=== PATIENT | female | born 2000 | race Caucasian/White ===

== ENCOUNTER 2018-05-23 14:07 | Emergency (ER) | payer OTHER ==
[2018-05-23] MEDS ORDERED: Ondansetron INJ* 2 MG/ML VIAL IV ONE (15:02)
[2018-05-23] MEDS ORDERED: NS 0.9% 1000 ML* 2,000 ML IV ONE (15:02)
--- NOTE | 2018-05-23 15:09 | ED ---
Abdominal Pain/Female - HPI Summary HPI Summary: Pt is a 18 y/o F presenting to the ED with a chief complaint of nausea and vomiting. She drank alcohol in excess last night, and is complaining of abd pain and general weakness. - History of Current Complaint Chief Complaint: EDNauseaVomitDiarrh Stated Complaint: VOMITING Time Seen by Provider: 05/23/18 14:52 Hx Obtained From: Patient Onset/Duration: Sudden Onset, Lasting Hours, Still Present Timing: Constant Severity Initially: Moderate Severity Currently: Moderate Pain Intensity: 9 Pain Scale Used: 0-10 Numeric Location: Diffuse Radiates: No Character: Burning Aggravating Factor(s): Food, Movement Alleviating Factor(s): Nothing Associated Signs and Symptoms: Positive: Nausea, Vomiting. Negative: Fever Allergies/Adverse Reactions: Allergies Allergy/AdvReac Type Severity Reaction Status Date / Time No Known Allergies Allergy Verified 05/23/18 14:23 Home Medications: Home Medications FLUoxetine* [PROzac*] 40 mg PO DAILY 05/23/18 [History Confirmed 05/23/18] PMH/Surg Hx/FS Hx/Imm Hx Previously Healthy: Yes Endocrine/Hematology History: Denies: Hx Diabetes Cardiovascular History: Denies: Hx Hypercholesterolemia - Immunization History Immunizations Up to Date: Yes Infectious Disease History: No Infectious Disease History: Denies: Traveled Outside the [place] in Last 30 Days - Family History Known Family History: Negative: Hypertension, Diabetes - Social History Lives: Dormitory/Roommates Alcohol Use: Weekly Substance Use Type: Reports: Marijuana Hx Tobacco Use: Yes Smoking Status (MU): Light Every Day Tobacco Smoker Review of Systems Negative: Fever Positive: Abdominal Pain, Vomiting, Nausea Positive: Weakness All Other Systems Reviewed And Are Negative: Yes Physical Exam - Summary Physical Exam Summary: Appearance: Well appearing, no pain distress Skin: warm, dry, reflects adequate perfusion Head/face: normal Eyes: EOMI, LANE ENT: normal Neck: supple, non-tender Respiratory: CTA, breath sounds present Cardiovascular: RRR, pulses symmetrical Abdomen: non-tender, soft Musculoskeletal: normal, strength/ROM intact Neuro: normal, sensory motor intact, A&Ox3 Triage Information Reviewed: Yes Vital Signs On Initial Exam: Initial Vitals Temp Pulse Resp BP Pulse Ox 97.2 F 84 16 141/84 98 05/23/18 14:19 05/23/18 14:19 05/23/18 14:19 05/23/18 14:19 05/23/18 14:19 Vital Signs Reviewed: Yes Diagnostics - Vital Signs Vital Signs Temp Pulse Resp BP Pulse Ox 05/23/18 14:19 97.2 F 84 16 141/84 98 - Laboratory Result Diagrams: 05/23/18 14:25 05/23/18 14:25 Lab Statement: Any lab studies that have been ordered have been reviewed, and results considered in the medical decision making process. Abdominal Pain Fem Course/Dx - Course Course Of Treatment: Pt is a 18 y/o F presenting to the ED with a chief complaint of nausea and vomiting. She drank alcohol in excess last night, and is complaining of abd pain and general weakness. Bloodwork/UA obtained. The pt will be discharged with a dx of nausea and vomiting. There is little concern for appendicitis. She is instructed to return to the ED if pain persists for the next 48 hours and to follow up with the [facility]. - Diagnoses Differential Diagnosis: Positive: Other - nausea/vomiting/gastritis/alcohol withdrawal Provider Diagnoses: Nausea & vomiting Discharge - Sign-Out/Discharge Documenting (check all that apply): Patient Departure - Discharge Plan Condition: Stable Disposition: HOME Patient Education Materials: Acute Nausea and Vomiting (ED) Referrals: [facility] [Primary Care Provider] - 1 Week Additional Instructions: RETURN TO THE EMERGENCY DEPARTMENT IF PAIN DOES NOT IMPROVE WITHIN THE NEXT 48 HOURS. - Billing Disposition and Condition Condition: STABLE Disposition: Home - Attestation Statements Document Initiated by Antonioibe: Yes Documenting Scribe: Riya Jang Provider For Whom Bro is Documenting (Include Credential): Sammy Calvo MD. Scribe Attestation: Riya Virk, osmined for Sammy Calvo MD. on 05/23/18 at 1636. Scribe Documentation Reviewed: Yes Provider Attestation: The documentation as recorded by the Riya monson accurately reflects the service I personally performed and the decisions made by , Sammy Calvo MD. Status of Scribe Document: Viewed
[2018-05-23 15:24] LABS: ABS Basophils 0 10^3/ul (0-0.2); ABS Eosinophils 0 10^3/ul (0-0.6); ABS Lymphocytes 0.7 10^3/ul (1.0-4.8); ABS Monocytes 0.3 10^3/ul (0-0.8); ABS Neutrophils 13.4 10^3/ul (1.5-7.7); ABS Nucleated RBC 0 10^3/ul; Eosinophil % 0 %; Hematocrit 40 % (35-47); Hemoglobin 12.8 g/dl (12.0-16.0); Lymphocyte % 5.2 %; Mean Corpuscular HGB Conc 32 g/dl (31-36); Mean Corpuscular Hemoglobin 26 pg (27-31); Mean Corpuscular Volume 81 fL (80-97); Mean Platelet Volume 8.4 fL (7.4-10.4); Nucleated Red Blood Cells % 0.1; Platelet Count 319 10^3/ul (150-450); Red Cell Distribution Width 15 % (10.5-15); White Blood Count 14.4 10^3/ul (3.5-10.8)
[2018-05-23 15:46] LABS: ALT 27 U/L (7-52); AST 26 U/L (13-39); Albumin 4.9 g/dL (3.2-5.2); Albumin/Globulin Ratio 1.6 (1-3); Alkaline Phosphatase 79 U/L (34-104); Anion Gap 11 mmol/L (2-11); BUN/Creatinine Ratio 15.9 (8-20); Blood Urea Nitrogen 11 mg/dL (6-24); CO2 Carbon Dioxide 23 mmol/L (22-32); Calcium 9.5 mg/dL (8.6-10.3); Chloride 107 mmol/L (101-111); EGFR Non-African American 108.5 (>60); Glucose 119 mg/dL (70-100); Sodium 141 mmol/L (135-145); Total Protein 7.9 g/dL (6.4-8.9)
[2018-05-23 15:48] LABS: HCG Pregnancy < 0.60 mIU/mL
[2018-05-23 16:31] VITALS: BP 115/81
== END 2018-05-23 16:28 | disposition home or self-care (01) ==
LOC: ED 14:07
DX: R11.2 Nausea with vomiting, unspecified (principal); R10.9 Unspecified abdominal pain; R53.1 Weakness; F17.210 Nicotine dependence, cigarettes, uncomplicated
CPT/HCPCS: 36415; 80053; 83690; 84702; 85025; 96374; 99282; J2405